=== PATIENT | male | born 1965 | race Caucasian/White ===

== ENCOUNTER 2016-12-23 11:39 | Emergency (ER) | payer SELFPAY ==
[~2016-12-23] VITALS: Ht 167.6 cm; Wt 72.5 kg
[2016-12-23 11:42] VITALS: BP 132/90; PULSE 97; RESP 20; TEMP 97.8; O2SAT 97
[2016-12-23] MEDS ORDERED: ONDANSETRON ODT 4 MG TAB PO ONE (12:00)
[2016-12-23] MEDS ORDERED: RESP: ALBUTEROL 2.5 MG/IPRATROPIUM 0.5 MG NEB (SCH) INH ONE (12:00)
--- NOTE | 2016-12-23 12:34 | PD ---
HPI Chief Complaint: GI Complaint Time Seen by Provider: 11:53 Travel History International Travel<30 days: No Contact w/Intl Traveler<30days: No Traveled to known affect area: No History of Present Illness HPI 51-year-old male here with complaint of cough, vomiting. Patient has been ill for the last 2 weeks with a intractable nonproductive cough. No fevers or chills. Patient has had associated nausea, and 2 episodes of posttussive emesis. No abdominal pain, diarrhea. Nonsmoker and denies any history of lung disease. PFSH Past Medical History Diminished Hearing: No Kidney Stones: Yes Past Surgical History Abdominal Surgery: Yes (BILAT INGUINAL HERNIAPLASTY) Social History Alcohol Use: No Tobacco Use: No Substance Use: No Allergies-Medications (Allergen,Severity, Reaction): Coded Allergies: No Known Allergies (Verified , 12/23/16) Reported Meds & Prescriptions Reported Meds & Active Scripts Active Tessalon Perles (Benzonatate) 100 Mg Cap 200 Mg PO TID PRN Review of Systems Except as stated in HPI: all other systems reviewed are Neg Physical Exam Narrative GENERAL well-appearing male in no acute distress SKIN: Focused skin assessment warm/dry. HEAD: Normocephalic. EYES: No scleral icterus. No injection or drainage. ENT: Mucous membranes pink and moist. NECK: Supple CARDIOVASCULAR: Regular rate and rhythm. No murmur appreciated. RESPIRATORY: No accessory muscle use. Right base with slight rhonchi GASTROINTESTINAL: Abdomen soft, non-tender, nondistended MUSCULOSKELETAL: Normal gait NEUROLOGICAL: Awake and alert. Normal speech. PSYCHIATRIC: Appropriate mood and affect; insight and judgment normal. Data Data Last Documented VS Vital Signs Date Time Temp Pulse Resp B/P Pulse Ox O2 Delivery O2 Flow Rate FiO2 12/23/16 11:42 97.8 97 20 132/90 97 Room Air Orders Chest, Single Ap (12/23/16 11:56) Albuterol-Ipratropium Neb (Duoneb Neb) (12/23/16 12:00) Ondansetron Odt (Zofran Odt) (12/23/16 12:00) Dexamethasone Inj (Decadron Inj) (12/23/16 13:00) MDM Medical Decision Making Medical Screen Exam Complete: Yes Emergency Medical Condition: Yes Medical Record Reviewed: Yes Differential Diagnosis 51-year-old male here with complaint of cough and posttussive emesis 2 weeks. Rhonchi in the right base. Differential includes bronchitis, pneumonia, influenza, viral syndrome. Emesis is described as posttussive, no abdominal pain on exam to suggest intra-abdominal pathology area easily vomited twice making elect to light abnormality unlikely. Narrative Course Patient given Sean Mcadams 1. Portal chest x-ray obtained that by my read shows no acute abnormalities. Patient was given dose of IM Decadron and will be discharged home. Diagnosis Primary Impression: Bronchitis Additional Impressions: Upper respiratory infection Qualified Code: J06.9 - Upper respiratory tract infection, unspecified type Post-tussive emesis Referrals: Primary Care Physician as needed Patient Instructions: General Instructions, Upper Respiratory Infection (ED) Additional Instructions: Tessalon Perles as needed for cough. Drink plenty of fluids. Med/Other Pt SpecificInfo: Prescription(s) given Scripts Benzonatate (Tessalon Perles)100 Mg Afs129 Mg PO TID PRN (COUGH) #21 CAP Ref 0 Prov:Loren Hurley MD 12/23/16 Disposition: 01 DISCHARGE HOME Condition: Stable Loren Hurley MD Dec 23, 2016 12:34
--- NOTE | 2016-12-23 12:50 | RADRPT ---
EXAM DATE/TIME: 12/23/2016 12:25 [facility] COMPARISON: CHEST SINGLE AP, May 28, 2016, 22:20. INDICATIONS : Short of breath MEDICAL HISTORY : None. SURGICAL HISTORY : None. ENCOUNTER: Initial ACUITY: 2 weeks PAIN SCORE: 3/10 LOCATION: Bilateral chest FINDINGS: A single view of the chest demonstrates the lungs to be symmetrically aerated without evidence of mas s, infiltrate or effusion. The cardiomediastinal contours are unremarkable. Osseous structures are intact. CONCLUSION: No acute disease. Kerwin Kendall MD on December 23, 2016 at 12:48 Board Certified Radiologist. This report was verified electronically.
[2016-12-23] MEDS ORDERED: BENZ100 PO (12:58)
[2016-12-23] MEDS ORDERED: DEXAMETHASONE SOD PHOS 4 MG/ML VIAL IM ONE (13:00)
[2016-12-23 13:14] VITALS: BP 150/80; PULSE 102; RESP 16; O2SAT 94
[2016-12-24] MEDS ORDERED: ONDA4TAB7 SL (14:22)
== END 2016-12-23 13:31 | disposition home or self-care (01) ==
LOC: NEPD 11:39
DX: J40 Bronchitis, not specified as acute or chronic (principal); J06.9 Acute upper respiratory infection, unspecified
CPT/HCPCS: 71010; 94664; 96372; 99284; J1100

== ENCOUNTER 2016-12-24 12:48 | Emergency (ER) | payer SELFPAY ==
[~2016-12-24] VITALS: Ht 167.6 cm; Wt 75.0 kg
[~2016-12-24 12:48] MED LIST: BENZ100 PO
[2016-12-24 12:49] VITALS: BP 125/77; PULSE 106; RESP 24; TEMP 98.3; O2SAT 93
--- NOTE | 2016-12-24 12:55 | PD ---
Physical Exam Time Seen by Provider: 12:53 Narrative 51 yowm presents for evaluation of Vomiting with meals, 3x today. He reports a cough /congestion for 2 weeks, had approximately one episode of postussive emesis last two days but todays vomiting episodes are worse and associated with meals. Seen yesterday for bronchitis. Seen at triage desk. Awaiting bed placement. Data Data Last Documented VS Vital Signs Date Time Temp Pulse Resp B/P Pulse Ox O2 Delivery O2 Flow Rate FiO2 12/24/16 12:49 98.3 106 24 125/77 93 Room Air [facility] Medical Record Reviewed: Yes Supervised Visit with JASMIN: Yes Jhonny Carvajal Dec 24, 2016 12:55
[2016-12-24] MEDS ORDERED: SODIUM CHLOR 0.9% 1000 ML INJ 1,000 ML IV ONE (13:07)
--- NOTE | 2016-12-24 13:08 | PD ---
HPI Chief Complaint: GI Complaint Time Seen by Provider: 13:08 Travel History International Travel<30 days: No Contact w/Intl Traveler<30days: No Traveled to known affect area: No History of Present Illness HPI 51-year-old male presents to the emergency department for evaluation of vomiting since Friday, 3 days ago. He states that her symptoms worsened today. He reports unable to keep anything down. He reports vomiting 3 times so far today. He states he has abdominal pain only with vomiting. No fevers or chills. He was seen yesterday in the emergency department was diagnosed with bronchitis. Chest x-ray was normal at that time. He does report coughing and congestion for approximately 2 weeks. He denies any fevers or chills. No diarrhea. He has no other complaints at this time. Patient reports no chronic medical problems and taking no medications. PFSH Past Medical History Diminished Hearing: No Kidney Stones: Yes Past Surgical History Abdominal Surgery: Yes (BILAT INGUINAL HERNIAPLASTY) Social History Alcohol Use: No Tobacco Use: No Substance Use: No Allergies-Medications (Allergen,Severity, Reaction): Coded Allergies: No Known Allergies (Verified , 12/24/16) Reported Meds & Prescriptions Reported Meds & Active Scripts Active Tessalon Perles (Benzonatate) 100 Mg Cap 200 Mg PO TID PRN Review of Systems Except as stated in HPI: all other systems reviewed are Neg Physical Exam Narrative GENERAL: Well-nourished, well-developed male patient, ambulatory. Afebrile. SKIN: Focused skin assessment warm/dry. HEAD: Normocephalic. Atraumatic. EYES: No scleral icterus. No injection or drainage. NECK: Supple, trachea midline. No JVD or lymphadenopathy. CARDIOVASCULAR: Regular rate and rhythm without murmurs, gallops, or rubs. RESPIRATORY: Breath sounds equal bilaterally. No accessory muscle use. Lungs sounds are clear to auscultation. GASTROINTESTINAL: Abdomen soft, non-tender, nondistended. No abdominal pain to palpation. MUSCULOSKELETAL: No cyanosis, or edema. BACK: Nontender without obvious deformity. No CVA tenderness. Data Data Last Documented VS Vital Signs Date Time Temp Pulse Resp B/P Pulse Ox O2 Delivery O2 Flow Rate FiO2 12/24/16 13:13 94 Room Air 12/24/16 12:49 98.3 106 24 125/77 Orders Complete Blood Count With Diff (4/11/17 13:07) Comprehensive Metabolic Panel (12/24/16 13:07) Lipase (12/24/16 13:07) Iv Access Insert/Monitor (12/24/16 13:07) Oximetry (12/24/16 13:07) Ondansetron Inj (Zofran Inj) (12/24/16 13:15) Sodium Chlor 0.9% 1000 Ml Inj (Ns 1000 M (12/24/16 13:07) Sodium Chloride 0.9% Flush (Ns Flush) (12/24/16 13:15) Labs Laboratory Tests Test 12/24/16 13:19 White Blood Count 12.5 TH/MM3 Red Blood Count 5.28 MIL/MM3 Hemoglobin 15.6 GM/DL Hematocrit 45.0 % Mean Corpuscular Volume 85.2 FL Mean Corpuscular Hemoglobin 29.6 PG Mean Corpuscular Hemoglobin 34.7 % Concent Red Cell Distribution Width 13.7 % Platelet Count 262 TH/MM3 Mean Platelet Volume 8.0 FL Neutrophils (%) (Auto) 71.1 % Lymphocytes (%) (Auto) 18.3 % Monocytes (%) (Auto) 8.6 % Eosinophils (%) (Auto) 1.4 % Basophils (%) (Auto) 0.6 % Neutrophils # (Auto) 8.9 TH/MM3 Lymphocytes # (Auto) 2.3 TH/MM3 Monocytes # (Auto) 1.1 TH/MM3 Eosinophils # (Auto) 0.2 TH/MM3 Basophils # (Auto) 0.1 TH/MM3 CBC Comment DIFF FINAL Differential Comment Sodium Level 137 MEQ/L Potassium Level 3.7 MEQ/L Chloride Level 100 MEQ/L Carbon Dioxide Level 29.0 MEQ/L Anion Gap 8 MEQ/L Blood Urea Nitrogen 21 MG/DL Creatinine 1.27 MG/DL Estimat Glomerular Filtration 59 ML/MIN Rate Random Glucose 106 MG/DL Calcium Level 9.0 MG/DL Total Bilirubin 0.7 MG/DL Aspartate Amino Transf 12 U/L (AST/SGOT) Alanine Aminotransferase 19 U/L (ALT/SGPT) Alkaline Phosphatase 61 U/L Total Protein 6.7 GM/DL Albumin 3.4 GM/DL Lipase 105 U/L [facility] Medical Decision Making Medical Screen Exam Complete: Yes Emergency Medical Condition: Yes Medical Record Reviewed: Yes Differential Diagnosis Gastroenteritis versus viral syndrome versus dehydration versus electrolyte abnormality Narrative Course 51-year-old male presents to the emergency department for evaluation of vomiting that worsened today, but has been ongoing for 3 days. Patient does appear well on exam. IV access established. CBC, CMP, lipase are ordered and pending. Patient is given normal saline 1 L IV bolus and Zofran 4 mg IV. CBC shows mild leukocytosis of 12.5. CMP shows no acute abnormal. Lipase is 105. I discussed the case with my attending physician, Dr. Salmeron, who agrees with plan and disposition. Patient will be discharged with a prescription for Zofran. He is encouraged to follow up with a primary care physician. The patient was discharged in stable condition with instructions, including return instructions and follow up instructions. Diagnosis Primary Impression: Viral syndrome Additional Impression: Vomiting Qualified Code: R11.2 - Non-intractable vomiting with nausea, unspecified vomiting type Referrals: Primary Care Physician call for appointment Patient Instructions: Acute Nausea and Vomiting (ED), General Instructions, Viral Syndrome (ED) Additional Instructions: Take Zofran as directed as needed for nausea/vomiting. [place] diet. Follow-up with your primary care physician. Return to the emergency department for any acute worsening of symptoms. Med/Other Pt SpecificInfo: Prescription(s) given Scripts Ondansetron Odt 4 Mg Tab4 Mg SL Q6HR PRN (Nausea/Vomiting) #12 TAB Ref 0 Prov:Dora Elizabeth 12/24/16 Disposition: 01 DISCHARGE HOME Condition: Stable Dora Elizabeth Dec 24, 2016 13:08
[2016-12-24 13:13] VITALS: O2SAT 94
[2016-12-24] MEDS ORDERED: ONDANSETRON HCL 4 MG/2 ML VIAL IVP ONE (13:15)
[2016-12-24] MEDS ORDERED: SODIUM CHLORIDE 0.9% FLUSH 10 ML FLUSH IVF PRN (13:15)
[2016-12-24 13:31] LABS: AUTOMATED NEUTROPHIL # 8.9 TH/MM3 (1.8-7.7); BASOPHIL # 0.1 TH/MM3 (0-0.2); BASOPHIL % 0.6 % (0.0-2.0); EOSINOPHIL # 0.2 TH/MM3 (0-0.4); EOSINOPHIL % 1.4 % (0.0-4.0); HEMO FLAGS DIFF FINAL; LYMPH % 18.3 % (9.0-44.0); LYMPHOCYTE # 2.3 TH/MM3 (1.0-4.8); MEAN CELL VOLUME 85.2 FL (80.0-100.0); MEAN CORPUSCULAR HEMOGLOBIN 29.6 PG (27.0-34.0); MEAN CORPUSCULAR HGB CONC 34.7 % (32.0-36.0); MONO % 8.6 % (0.0-8.0); NEUT % 71.1 % (16.0-70.0); PLATELET COUNT 262 TH/MM3 (150-450); RED BLOOD COUNT 5.28 MIL/MM3 (4.50-5.90); RED CELL DISTRIBUTION WIDTH 13.7 % (11.6-17.2); WHITE BLOOD COUNT 12.5 TH/MM3 (4.0-11.0)
[2016-12-24 14:04] LABS: ALT (GPT) 19 U/L (12-78); ANION GAP 8 MEQ/L (5-15); AST (GOT) 12 U/L (15-37); BLOOD UREA NITROGEN 21 MG/DL (7-18); CHLORIDE 100 MEQ/L (98-107); GLOMERULAR FILTRATION RATE 59 ML/MIN (>89); POTASSIUM 3.7 MEQ/L (3.5-5.1); SODIUM (NA) 137 MEQ/L (136-145)
[2016-12-24 14:06] LABS: ALKALINE PHOSPHATASE 61 U/L (45-117); TOTAL BILIRUBIN ADULT 0.7 MG/DL (0.2-1.0)
[2016-12-24] MEDS ORDERED: ONDA4TAB7 SL (14:22)
== END 2016-12-24 14:37 | disposition home or self-care (01) ==
LOC: NEPD 12:48
DX: B34.9 Viral infection, unspecified (principal); R11.2 Nausea with vomiting, unspecified
CPT/HCPCS: 80053; 83690; 85025; 96374; 99284; J2405; J7030